=== PATIENT | male | born 1995 | race Hispanic/Latino ===

== ENCOUNTER 2017-07-17 00:23 | Observation (INO) | payer OTHER ==
[~2017-07-17] VITALS: Ht 170.2 cm; Wt 104.3 kg
[2017-07-17] MEDS ORDERED: SODIUM CHLORIDE 0.9% 1000ML 1,000 ML IV ONE (01:33)
[2017-07-17 01:47] LABS: POTASSIUM 3.9 mmol/L (3.5-5.1)
[2017-07-17 01:49] LABS: ALBUMIN 3.9 g/dL (3.5-5.0); BASOPHILS % (AUTO) 0.5 % (0.0-5.0); EOSINOPHILS % (AUTO) 1.9 % (0.0-8.0); HEMATOCRIT 40.6 % (42-54); LYMPHOCYTES % (AUTO) 47.4 % (21.0-51.0); MEAN CORPUSCULAR HEMOGLOBIN 30.7 pg (27.0-33.0); MEAN CORPUSCULAR HGB CONC 34.7 g/dL (32.0-36.0); MEAN CORPUSCULAR VOLUME 88.4 fL (79-99); MONOCYTES % (AUTO) 9.9 % (3.0-13.0); NEUTROPHILS % (AUTO) 40.3 % (40.0-77.0); NUCLEATED RED BLOOD CELLS 0.1 % (0.0-0.19); PLATELET COUNT (AUTO) 218 K/uL (130-400); RED BLOOD CELL COUNT(AUTO) 4.59 MIL/uL (4.50-6.20); RED CELL DISTRIBUTION WIDTH 13.1 % (11.0-15.5); WHITE BLOOD COUNT (AUTO) 6.1 K/uL (4.8-10.8)
[2017-07-17 02:00] LABS: BILIRUBIN,TOTAL 0.3 mg/dL (0.2-1.0); TOTAL PROTEIN, SERUM 7.6 g/dL (6.0-8.3)
[2017-07-17 02:01] LABS: INR 0.95 (0.85-1.15); PARTIAL THROMBOPLASTIN TIME 27.9 SEC (26.3-35.5)
[2017-07-17 06:34] LABS: HEMATOCRIT 36.6 % (42-54)
[2017-07-17] MEDS ORDERED: SODIUM CHLORIDE 0.9% 1000ML 1,000 ML IV SCH (06:38)
[2017-07-17] MEDS ORDERED: SODIUM CHLORIDE 0.9% 100 ML IV ONE (06:41)
[2017-07-17] MEDS ORDERED: MORPHINE SULFATE 4 MG/1ML SYG IV PRN ×2 (06:45→09:30)
[2017-07-17] MEDS ORDERED: LIDOCAINE HCL-MPF 1% 2ML VIAL IVP PRN ×2 (06:45→09:30)
[2017-07-17] MEDS ORDERED: POTASSIUM CHLORIDE 20MEQ/100ML 100 ML IV PRN ×2 (06:45→09:30)
[2017-07-17] MEDS ORDERED: ONDANSETRON HCL MDV 20ML 2 MG/ML VIAL IV PRN (06:45)
[2017-07-17] MEDS ORDERED: POTASSIUM CHLORIDE 10% ELIXIR 20 MEQ/15 ML UDCUP PO PRN ×2 (06:45→09:30)
[2017-07-17] MEDS ORDERED: POTASSIUM CHLORIDE 20 MEQ ERTAB PO PRN ×2 (06:45→09:30)
[2017-07-17 07:52] VITALS: BP 131/68
[2017-07-17 08:20] VITALS: BP 116/69
[2017-07-17] MEDS ORDERED: PANTOPRAZOLE SODIUM 80 MG in SODIUM CHLORIDE 0.9% 100 ML IV SCH (09:00)
[2017-07-17] MEDS ORDERED: ACETAMINOPHEN-CODEINE 300/30MG TAB PO PRN ×2 (09:30)
[2017-07-17] MEDS ORDERED: MAG HYDROX/AL HYDROX/SIMETH ES 30 ML SUSP UDCUP PO PRN (09:30)
[2017-07-17] MEDS ORDERED: GUAIFENESIN-DM 200/20 MG 10 ML PO PRN (09:30)
[2017-07-17] MEDS ORDERED: ONDANSETRON HCL 4 MG/2 ML VIAL IV PRN (09:30)
[2017-07-17] MEDS ORDERED: ACETAMINOPHEN 325 MG TAB PO PRN ×2 (09:30)
[2017-07-17] MEDS ORDERED: NITROGLYCERIN 0.4 MG SL TAB SL PRN (09:30)
[2017-07-17] MEDS ORDERED: MORPHINE SULFATE 2 MG/ML 1ML SYG IV PRN (09:30)
[2017-07-17] MEDS ORDERED: HYDRALAZINE HCL 20 MG/ML VIAL IV PRN (09:30)
[2017-07-17] MEDS ORDERED: LACTULOSE 20 GM/30 ML UDCUP PO PRN (09:30)
[2017-07-17 09:57] LABS: HEMATOCRIT 37.2 % (42-54)
[2017-07-17 11:00] VITALS: BP 116/69
[2017-07-17 16:00] VITALS: BP 116/62
[2017-07-17 19:41] VITALS: BP 126/68
[2017-07-17] MEDS ORDERED: HYDROCORTISONE/PRAMOXINE 10 GM FOAM RC SCH (21:00)
[2017-07-17 23:48] VITALS: BP 119/53
[2017-07-18 04:00] VITALS: BP 114/48
[2017-07-18 05:48] LABS: HEMATOCRIT 35.7 % (42-54); MEAN CORPUSCULAR HEMOGLOBIN 30.5 pg (27.0-33.0); MEAN CORPUSCULAR VOLUME 89.6 fL (79-99); PLATELET COUNT (AUTO) 211 K/uL (130-400); RED BLOOD CELL COUNT(AUTO) 3.99 MIL/uL (4.50-6.20); RED CELL DISTRIBUTION WIDTH 13.2 % (11.0-15.5); WHITE BLOOD COUNT (AUTO) 5.6 K/uL (4.8-10.8)
[2017-07-18 05:51] LABS: BAND NEUTROPHILS % (MANUAL) 2 % (0-2); LYMPHOCYTES % (MANUAL) 24 % (22-44); MAN.DIFF COMMENT-IMPRESSION MANUAL DIFFERENTIAL; MONOCYTES % (MANUAL) 6 % (2-9); PLATELET MORPHOLOGY COMMENT ADEQUATE; SEGMENTED NEUTROPHILS % 68 % (40-70)
[2017-07-18 05:57] LABS: ALBUMIN 3.2 g/dL (3.5-5.0); BILIRUBIN,TOTAL 0.3 mg/dL (0.2-1.0); TOTAL PROTEIN, SERUM 6.4 g/dL (6.0-8.3)
[2017-07-18 07:57] VITALS: BP 118/55
[2017-07-18] MEDS ORDERED: HYDROCORTISONE 25 MG SUPPOSITORY PR SCH (09:00)
[2017-07-18] MEDS ORDERED: HYDR25SU11 PR (09:17)
[2017-07-18 11:32] VITALS: BP 106/50
== END 2017-07-18 14:00 | disposition home or self-care (01) ==
LOC: EDH 00:23 → EDBD 00:23 → EDHIP 02:30 → 4CH 08:31
PROVIDERS: ADMIT Internal Medicine; ATTEND Internal Medicine
DX: K64.4 Residual hemorrhoidal skin tags (principal); K64.8 Other hemorrhoids; K92.2 Gastrointestinal hemorrhage, unspecified
CPT/HCPCS: 36415; 74176; 80053; 82270; 85014; 85018; 85025; 85610; 85730; 87507; 96365; 96366; C9113; G0378; J7030